=== PATIENT | male | born 1955 | race Caucasian/White ===

== ENCOUNTER 2016-04-22 14:02 | Day surgery (SDC) | payer OTHER ==
[~2016-04-22] VITALS: Ht 180.3 cm; Wt 86.4 kg
[2016-04-22] MEDS ORDERED: LIPITOR 10MG10 MG PO (14:27)
[2016-04-22] MEDS ORDERED: PRINIVIL5 MG PO (14:27)
[2016-04-22 14:29] VITALS: BP 123/87; PULSE 81; TEMP 98.1
[2016-04-22 16:00] VITALS: BP 118/76; PULSE 61; TEMP 98
[2016-04-22 16:15] VITALS: BP 108/873; PULSE 62
[2016-04-22 16:30] VITALS: BP 112/81; PULSE 68
== END 2016-04-22 16:45 | disposition home or self-care (01) ==
LOC: SDCO 14:02
DX: Z12.11 Encounter for screening for malignant neoplasm of colon (principal); I10 Essential (primary) hypertension; E78.5 Hyperlipidemia, unspecified; R73.01 Impaired fasting glucose; E66.3 Overweight; Z68.29 Body mass index [BMI] 29.0-29.9, adult; Z79.899 Other long term (current) drug therapy
CPT/HCPCS: OP; J2250; J3010; J7030